=== PATIENT | female | born 1990 | race Caucasian/White ===

== ENCOUNTER 2016-12-19 00:05 | Emergency (ER) | payer OTHER ==
[2016-12-19 00:29] VITALS: BP 101/66; PULSE 86
[2016-12-19] MEDS ORDERED: LACTATED RINGER'S 1000 ML INJ 1,000 ML IV SCH (00:38)
[2016-12-19] MEDS ORDERED: AZITHROMYCIN 600 MG TAB PO ONE (00:45)
--- NOTE | 2016-12-19 00:50 | PD ---
HPI Travel History International Travel<30 Days: No Contact w/Intl Traveler<30Days: No Known Affected Area: No History of Present Illness HPI This patient is a 26-year-old 3 para 2001 EDC is May 26, 2017 presently at 17 weeks and 4 days she presents the chief complaint of a 1-1/2 week history of nasal congestion stuffy nose subsequent onset of nausea and vomiting associated with nasal congestion. care with Saba Galindo states that she discussed this with her provider was told to take Sudafed which did not help her symptoms. No abdominal pain no vaginal bleeding no discharge positive movement denies any other problems History Past Medical History Narrative Medical No known drug allergies no major medical problems Obstetric History Obstetric History First baby born October 2013 female infant weight 6 pounds vaginal delivery uncomplicated Second baby born December 2015 female infant weight 6 lbs. 13 oz. vaginal delivery uncomplicated Past Surgical History Surgical History: No Previous Surgery Family History Narrative Family History Father with diabetes Social History Alcohol Use: No Tobacco Use: No Substance Abuse: No Allergies-Medications (Allergen,Severity, Reaction): Coded Allergies: No Known Allergies (Unverified , 12/19/16) Review of Systems General / Constitutional: Chills HENT: Other (nasal congestion) Gastrointestinal: Nausea, Vomiting, Other Physical Exam Narrative GENERAL: Well-nourished, well-developed patient. Alert oriented 3 and cooperative in no acute distress SKIN: Warm and dry. HEAD: Normocephalic and atraumatic. EYES: No scleral icterus. No injection or drainage. ENT: No nasal drainage noted. Mucous membranes pink. Airway patent. No redness of her throat no adenopathy NECK: Supple, trachea midline. No JVD. CARDIOVASCULAR: Regular rate and rhythm without murmurs, gallops, or rubs. RESPIRATORY: Breath sounds equal bilaterally. No accessory muscle use. ABDOMEN/GI: Abdomen soft, non-tender, bowel sounds present, no rebound, no guarding gravid consistent with 17 week soft nontender no rebound Gravid to [-] weeks size 17 weeks Fundal Height: [-] GENITOURINARY: Manual exam is deferred as patient has no complaints related to the External Genitalia: intact and normal in appearance BUS glands: [-] Cervix: [-] Dilatation: [-] Effacement: [-] Station: [-] Presentation: [-] Membranes: [intact FHT's: Category: [-] Baseline: [-] 140 Reactive: [-] Variability: [-] Decels: [-] EXTREMITIES: No cyanosis or edema. 2+ reflexes nonbrisk BACK: Nontender without obvious deformity. No CVA tenderness. NEUROLOGICAL: Awake and alert. Motor and sensory grossly within normal limits. Five out of 5 muscle strength in all muscle groups. Normal speech. Data Data Vital Signs Reviewed: Yes (temperature is 98.1 blood pressure 101/66 pulse of 86 O2 sat of 100%) Orders Vital Signs (Adult) .ON ADMISSION (12/19/16 00:38) ^ Labor Status (12/19/16 00:38) Urinalysis - C+S If Indicated (12/19/16 00:38) Labs Vital Signs, 24 Hour Date Time Temp Pulse Resp B/P Pulse Ox O2 Delivery O2 Flow Rate FiO2 12/19/16 00:29 86 101/66 Allergies Coded Allergies No Known Allergies (Unverified12/19/16) [id number] Liu MD Procedure Category Date Status Time Vital Signs (Adult) JULIEN 12/19/16 In Process 00:38 ^ Labor Status JULIEN 12/19/16 In Process 00:38 ^ Hydration JULIEN 12/19/16 In Process 00:38 Lactated Ringer's MED 12/19/16 In Process 1000 Ml Inj (Lr 1000 M 00:38 Ob/Psych Drug Screen, LAB 12/19/16 In Process Urine 00:38 Laboratory Tests per Sydnie Test 12/19/16 00:45 White Blood Count 11.9 TH/MM3 Red Blood Count 3.71 MIL/MM3 Sodium Level 141 MEQ/L Potassium Level 3.7 MEQ/L Blood Urea Nitrogen 6 MG/DL Microbiology 12/19/16 Influenza Types A,B Antigen (DENNY) - Final, Complete NEGATIVE FOR FLU A AND B ANTIGEN.... MDM Medical Record Reviewed: No Interpretation(s) 26-year-old 3 para 2 at 17 weeks 4 days No clinical evidence of threatened Sinusitis Nausea and vomiting associated with sinusitis Mild dehydration associated with nausea vomiting Narrative Course / MDM Patient has been hydrated with thousand cc of fluid Has been given the a Zithromax Fluids screen is negative Labs within normal limits no ketones in her urine potassium within normal limits We'll discharge patient home kick counts By mouth fluid hydration Vicks vapor rub Follow-up with Saba Galindo within the next 24-48 hours Plan IV fluid hydration lactated Ringer's is 1 25 cc an hour CBC basic metabolic profile urinalysis urine drug screen A Zithromax 2 g single dose Haemophilus influenza swab Subsequent reevaluation Diagnosis Diagnosis: Primary Impression: 17 weeks gestation of Additional Impression: Sinusitis Qualified Code: J01.90 - Acute sinusitis, recurrence not specified, unspecified location Disposition: DISCHARGE HOME Condition: Stable Sridevi Liu MD Dec 19, 2016 00:50
[2016-12-19 01:00] VITALS: RESP 18
[2016-12-19 01:11] LABS: HEMATOCRIT 29.9 % (35.0-46.0); MEAN CELL VOLUME 80.5 FL (80.0-100.0); MEAN CORPUSCULAR HEMOGLOBIN 27.8 PG (27.0-34.0); MEAN CORPUSCULAR HGB CONC 34.5 % (32.0-36.0); PLATELET COUNT 359 TH/MM3 (150-450); RED BLOOD COUNT 3.71 MIL/MM3 (4.00-5.30); RED CELL DISTRIBUTION WIDTH 14.3 % (11.6-17.2); REVIEW FLAG FINAL; WHITE BLOOD COUNT 11.9 TH/MM3 (4.0-11.0)
[2016-12-19] MEDS ORDERED: AZITHROMYCIN 250 MG TAB PO ONE (01:15)
[2016-12-19 01:23] LABS: BLOOD, URINE NEG (NEG); GLUCOSE,URINE NEG (NEG); KETONE, URINE NEG (NEG); MUCUS URINE FEW /lpf (OCC); NITRITE,URINE NEG (NEG); PH, URINE 7.5 (5.0-8.5); SQUAMOUS EPITHELIAL CELL URINE 4 /hpf (0-5); URINE COLOR YELLOW (YELLW/STRAW)
[2016-12-19 01:25] LABS: COMMENT (UR) CULT NOT INDICATED; CULTURE IF INDICATED CULT NOT INDICATED
[2016-12-19 01:26] LABS: BICARBONATE 24.1 MEQ/L (21.0-32.0); POTASSIUM 3.7 MEQ/L (3.5-5.1)
[2016-12-19 01:29] LABS: AMPHETAMINE, URINE NEG (NEG); BARBITURATES, URINE NEG (NEG); COCAINE, URINE NEG (NEG)
[2016-12-19 01:30] VITALS: RESP 18
[2016-12-23 09:03] LABS: BATH SALTS (MDPV) UR NEG (NEG); ECSTASY (MDMA) UR NEG (NEG); GABAPENTIN UR NEG (NEG); HEROIN (6-ACETYLMORPHINE) UR NEG (NEG); HYDROMORPHONE U NEG (NEG); K2 SPICE UR NEG (NEG); OBMETHADONE UR NEG (NEG); OXYCODONE (PERCODAN) NEG (NEG); PHENCYCLIDINE URINE NEG (NEG)
== END 2016-12-19 01:41 | disposition home or self-care (01) ==
LOC: HOBED 00:05
DX: O26.899 Other specified pregnancy related conditions, unspecified trimester (principal); J32.9 Chronic sinusitis, unspecified; R11.2 Nausea with vomiting, unspecified; E86.0 Dehydration; Z3A.17 17 weeks gestation of pregnancy
CPT/HCPCS: 80048; 80307; 81001; 85027; 87804; 99284; G0481; J7120

== ENCOUNTER → 2017-07-31 | Outpatient (CLI) | payer MEDICAID ==
[2017-07-31 09:57] LABS: AUTOMATED NEUTROPHIL # 3.6 TH/MM3 (1.8-7.7); BASOPHIL % 0.6 % (0.0-2.0); EOSINOPHIL # 0.2 TH/MM3 (0-0.4); EOSINOPHIL % 2.8 % (0.0-4.0); HEMATOCRIT 34.4 % (35.0-46.0); HEMOGLOBIN 11.2 GM/DL (11.6-15.3); LYMPH % 23.8 % (9.0-44.0); LYMPHOCYTE # 1.3 TH/MM3 (1.0-4.8); MEAN CORPUSCULAR HEMOGLOBIN 24.2 PG (27.0-34.0); MEAN CORPUSCULAR HGB CONC 32.6 % (32.0-36.0); MEAN PLATELET VOLUME 7.2 FL (7.0-11.0); MONOCYTE # 0.4 TH/MM3 (0-0.9); NEUT % 65.8 % (16.0-70.0); PLATELET COUNT 348 TH/MM3 (150-450); RED BLOOD COUNT 4.65 MIL/MM3 (4.00-5.30); RED CELL DISTRIBUTION WIDTH 18.3 % (11.6-17.2); WHITE BLOOD COUNT 5.5 TH/MM3 (4.0-11.0)
[2017-07-31 10:00] LABS: BILIRUBIN, URINE NEG (NEG); BLOOD, URINE NEG (NEG); GLUCOSE,URINE NEG (NEG); KETONE, URINE NEG (NEG); MUCUS URINE FEW /lpf (OCC); NITRITE,URINE NEG (NEG); SQUAMOUS EPITHELIAL CELL URINE 19 /hpf (0-5); URINE COLOR YELLOW (YELLW/STRAW); URINE LEUKOCYTE ESTERASE MOD (NEG)
[2017-07-31 10:14] LABS: AST (GOT) 10 U/L (15-37); BICARBONATE 27.6 MEQ/L (21.0-32.0); BLOOD UREA NITROGEN 18 MG/DL (7-18); CALCIUM 8.7 MG/DL (8.5-10.1); CHLORIDE 110 MEQ/L (98-107); CREATININE 0.59 MG/DL (0.50-1.00); GLOMERULAR FILTRATION RATE 122 ML/MIN (>89); GLUCOSE,FASTING 79 MG/DL (74-99); SODIUM (NA) 143 MEQ/L (136-145)
[2017-07-31 10:15] LABS: ALT (GPT) 11 U/L (10-53)
[2017-07-31 10:19] LABS: ALKALINE PHOSPHATASE 106 U/L (45-117); TOTAL BILIRUBIN ADULT 0.3 MG/DL (0.2-1.0); TOTAL PROTEIN 7.2 GM/DL (6.4-8.2)
== END ==
LOC: CPRE 09:13
PROVIDERS: ATTEND Obstetrics & Gynecology Gynecology
DX: Z01.812 Encounter for preprocedural laboratory examination (principal); Z30.2 Encounter for sterilization
CPT/HCPCS: 36415; 80053; 81001; 84703; 85025

== ENCOUNTER → 2017-08-08 | Day surgery (SDC) | payer MEDICAID ==
--- NOTE | 2017-07-31 11:24 | MH ---
cc: WILFREDO CARDENAS MD, JESSE S. MD DATE OF ADMISSION: 08/06/2017 DATE OF : 1990 REASON FOR ADMISSION Date of admission planned for August 06 for laparoscopic sterilization. HISTORY OF PRESENT ILLNESS The patient is a 27-year-old female, 3, para 3 who has completed childbearing and wants to proceed with surgical sterilization. PAST MEDICAL HISTORY The patient's medical history is negative for heart, lung, liver disease, hypertension, diabetes, stroke. PAST SURGICAL HISTORY None. GYNECOLOGIC HISTORY No STDs or abnormal Pap smears. OBSTETRICAL HISTORY Three vaginal deliveries. ALLERGIES None. MEDICATIONS None. FAMILY HISTORY Noncontributory. SOCIAL HISTORY Does not use alcohol or drugs. Has a 5-year pack year history of cigarettes, presently not smoking. and has good social support. REVIEW OF SYSTEMS Review of systems as above. No chest pain, orthopnea, PND. No nausea, vomiting, fever or chills. No vaginal bleeding or discharge. PHYSICAL EXAMINATION VITAL SIGNS: On exam she is afebrile. Vital signs stable. Blood pressure 120/70, height 5 feet 4 inches, weight 115, BMI is 20. GENERAL: Patient is alert and oriented, in no acute distress. No sign of cognitive dysfunction or depression. HEENT: Within normal limits. NECK: Supple. No JVD. CHEST: Clear. HEART: Regular rate and rhythm. ABDOMEN: Soft, nontender. No hepatosplenomegaly. No CVA tenderness. PELVIC: Exam to be detailed under anesthesia. EXTREMITIES: Normal skin without rashes. NEURO: Nonfocal. No DVT signs. ASSESSMENT Patient with multiparity, desires sterilization. The patient and I discussed at length the options for management and treatment. She is aware of the failure rate of tubal ligation as well as irreversibility of the procedure, surgical risks, alternative methods. The patient elects to proceed. We use Ancef 2 grams IV for antibiotic prophylaxis and sequential compression device for DVT prophylaxis. Wilfredo Cardenas MD CS/TLL /10:45 AM 10:50 AM
[~2017-08-08] VITALS: Ht 162.6 cm; Wt 52.9 kg
[~2017-08-08] MED LIST: *MEPERIDINE 25 MG INJ VIAL PERIprocedural Use ONLY ONE; *ONDANSETRON 4 MG VIAL PERIprocedural Use ONLY ONE; ACETAMINOPHEN 1000 MG/100 ML 100 ML IV ONE; CHLORHEXIDINE GLUCONATE 2 % 1 PACK (2 CLOTHS) TOPICAL PRN; DEXAMETHASONE SOD PHOS 4 MG/ML VIAL IV ONE; DO NOT ADM ANY ANTICOAGULANT DRUGS PRN; FAMOTIDINE 20 MG/2 ML VIAL ONE; GLYCOPYRROLATE 1 MG/5 ML SYRINGE IV PUSH ONE; KETOROLAC TROMETHAMINE 30 MG/ML (IVP) VIAL IM PRN; KETOROLAC TROMETHAMINE 30 MG/ML (IVP) VIAL IV PUSH ONE; KETOROLAC TROMETHAMINE 30 MG/ML (IVP) VIAL IV PUSH PRN; LACTATED RINGER'S 1000 ML INJ 1,000 ML IV ONE; LACTATED RINGER'S 1000 ML IV PRN; LIDOCAINE 0.5%/EPINEPHrine 1:200,000 SOLN 50 ML VIAL ONE; LIDOCAINE HCL 1% PF 5 ML SYRINGE OTHER ONE; METOPROLOL TARTRATE 25 MG TAB PO PRN; MIDAZOLAM HCL 2 MG/2 ML VIAL ONE; NALOXONE HCL 0.4 MG/ML AMP ONE; NEOSTIGMINE 5 MG/5 ML SYRINGE IV PUSH ONE; ONDANSETRON HCL 4 MG/2 ML VIAL IV ONE; ONDANSETRON HCL 4 MG/2 ML VIAL IV PUSH PRN; POVIDONE IODINE 5% (ANTISEPSIS KIT) 4 APPLICATIONS EACH NARE PRN; PROPOFOL 200 MG/20 ML AMP IV ONE; ROCURONIUM INJ 50 MG/5 ML SYRINGE IV PUSH ONE; SODIUM CHLORID 0.9% 500 ML IV PRN; SODIUM CHLORIDE 0.9% 20 ML VIAL IV ONE; ceFAZolin 2 GM PREMIX 50 ML IV SCH; traMADol HCL 50 MG TAB PO PRN
[2017-08-08 11:00] VITALS: BP 107/67; PULSE 77; RESP 20; TEMP 98.3; O2SAT 99
--- NOTE | 2017-08-09 22:00 | MP ---
cc: WILFREDO CARDENAS MD, JESSE S. MD DATE OF SURGERY 08/09/17 PREOPERATIVE DIAGNOSES Multiparity, desires sterilization (code Z01.818). POSTOPERATIVE DIAGNOSES Multiparity, desires sterilization (code Z01.818) with paratubal cysts (code N83.8) PROCEDURE Laparoscopic salpingectomy (code 55715). SURGEON Ti Cardenas MD ANESTHESIA General endotracheal ESTIMATED BLOOD LOSS 5 mL [employer] [place] staff x1 FLUIDS __ mL crystalloid URINE OUTPUT 10 mL FINDINGS Genitalia normal - pop Q score Aa is -1, Ap is -1, point C is -6, total vaginal length is 10. General hiatus is 8, perineal body is three. Uterus is retroverted. Adnexal structures were normal except for paratubal cysts. Upper abdomen normal. SPECIMENS Right and left tube COMPLICATIONS None DISPOSITION Recovery room stable. Needle and sponge count correct. DRAINS Stafford catheter ANTIBIOTIC PROPHYLAXIS Ancef 2 grams, DVT prophylaxis sequential compression device. Time-out procedure and identification per protocol. SUMMARY OF INDICATION AND PROCEDURE Patient with multiparity desires sterilization. She is taken to the operating theater, identified, and prepped and draped in fashion appropriate for planned procedure. She was in dorsal lithotomy position with careful attention paid to placement of legs in stirrups to avoid undue stress to sensitive neurovascular structures. Above findings noted. Neurovascular ____ documented. Umbilicus was infiltrated with epinephrine Lidocaine solution. The patient has a remarkably small frame and BMI was less than 18. We were careful in placing the initial trocar to avoid the retroperitoneal vascular structures as well as the bowel. We entered without complication, inspected after insufflation and then placed a 7 mm trocar suprapubically and a 5-mm trocar in the left lower quadrant using a needle as a guide. Tubes were identified. They were hydroptic and had small paratubal cysts. They were removed in standard salpingectomy technique using Harmonic energy without complication. Tubes were removed using Harmonic energy without damage to surrounding structures. Bowel was clear. Ureters were identified, good hemostasis with and without gas pressure. The trocars were inspected by moving the camera to a different port. There was no damage to the underlying contents. We then removed the trocars under direct visualization, expressed gas, closed the incision with 4-0 Monocryl and Dermabond. The patient tolerated procedure well. Went to recovery room in stable condition. MD NEHA Wray/ /11:03 AM /9:46 PM
== END | disposition home or self-care (01) ==
LOC: HSDC 06:09
PROVIDERS: ATTEND Obstetrics & Gynecology Gynecology
DX: Z30.2 Encounter for sterilization (principal); N83.8 Other noninflammatory disorders of ovary, fallopian tube and broad ligament
CPT/HCPCS: 00840; 58661; 88302; J0131; J0690; J1100; J1885; J2175; J2250; J2310; J2405; J2710; J3010; J7120